=== PATIENT | male | born 1985 | race Caucasian/White ===

== ENCOUNTER 2018-07-03 20:29 | Emergency (ER) | payer SELFPAY ==
[2018-07-03] MEDS ORDERED: Adacel (T-DAP) 0.5 ML VIAL ONE (20:48)
--- NOTE | 2018-07-03 22:21 | RAD ---
FOUR VIEWS LEFT ELBOW: History: Pain. Hit left elbow 10 days ago. Comparison: None. FINDINGS: No fracture. No cortical irregularity or periosteal reaction. No joint effusion. Joint spaces are pre served. IMPRESSION: Unremarkable four views left elbow. POS: [facility]
== END 2018-07-03 21:20 | disposition home or self-care (01) ==
LOC: SCSER 20:29
DX: L03.114 Cellulitis of left upper limb (principal); Z23 Encounter for immunization
CPT/HCPCS: 90471; 90715